=== PATIENT | female | born 1975 | race Caucasian/White ===

== ENCOUNTER 2024-01-05 09:39 | Emergency (ER) | payer SELFPAY ==
[~2024-01-05] VITALS: Ht 152.4 cm; Wt 75.3 kg
[2024-01-05 09:44] VITALS: BP 129/78; PULSE 72; RESP 16; TEMP 98; O2SAT 98
[2024-01-05] MEDS ORDERED: CEPH-588 PO (10:11)
[2024-01-05 10:43] VITALS: BP 123/75; PULSE 88; RESP 16; TEMP 98.1; O2SAT 98
== END 2024-01-05 10:42 | disposition home or self-care (01) ==
LOC: MED 09:39
DX: L03.312 Cellulitis of back [any part except buttock and flank] (principal)
CPT/HCPCS: 99283

== ENCOUNTER 2024-01-24 08:53 | Emergency (ER) | payer MEDICAID ==
[~2024-01-24] VITALS: Ht 152.4 cm; Wt 73.9 kg
[~2024-01-24 08:53] MED LIST: CEPH-588 PO
[2024-01-24 09:28] VITALS: BP 97/62; PULSE 99; RESP 17; TEMP 98.1; O2SAT 98
[2024-01-24] MEDS ORDERED: CEPH-588 PO (11:48)
[2024-01-24] MEDS ORDERED: IBUP-2213 PO (11:48)
[2024-01-24 12:26] VITALS: BP 98/76; PULSE 84; RESP 20; TEMP 98.2; O2SAT 98
== END 2024-01-24 12:31 | disposition home or self-care (01) ==
LOC: MED 08:53
DX: L03.314 Cellulitis of groin (principal); Z79.899 Other long term (current) drug therapy
CPT/HCPCS: 99283